=== PATIENT | female | born 1980 | race Two or more races ===

== ENCOUNTER 2024-09-05 03:58 | Emergency (ER) | payer BC, SELFPAY ==
--- NOTE | 2024-09-05 04:03 | XR_ITS ---
Examination: PA lateral chest 2 views Technique: Upright PA lateral chest 2 views Exam date and time: September 05, 2024 0412 hrs. Comparison March 20, 2024 Indications: Onset shortness of breath today Findings: Normal heart size Lungs are clear. The osseous structures are intact Impression: No active disease
--- NOTE | 2024-09-05 04:21 | PD.EDRME ---
Rapid Medical Screening Exam RME Arrival date/time: 09/05/24 03:58 44 year old for c/o of sob and chest pain I have greeted and performed a focused initial assessment of this patient. A comprehensive ED assessment and evaluation of the patient, analysis of all test results, and completion of the medical decision making process will be conducted by additional ED providers. Chief Complaint: Chest Pain Time Seen by Provider: 09/05/24 04:02
[2024-09-05 04:35] VITALS: BP 170/94; PULSE 106; RESP 18; TEMP 37.2; O2SAT 98
[2024-09-05 05:11] LABS: Basophils # (Auto) 0.1 Thou/mm3 (0.0-0.2); Basophils % (Auto) 1 % (0-2.5); Eosinophils % (Auto) 0 % (0-10); Hematocrit 42.2 % (36.0-46.0); Hemoglobin 14.9 g/dL (12.0-16.0); Immature Granulocytes % (Auto) 0 % (0-0); Immature Granulocytes Auto 0.02 Thou/mm3 (0.00-0.00); Lymphocytes # (Auto) 1.8 Thou/mm3 (1.0-4.8); Lymphocytes % (Auto) 18 % (10-50); Mean Corpuscular HGB Conc 35.3 g/dl (31.0-37.0); Mean Corpuscular Hemoglobin 32.1 pg (25.0-35.0); Mean Corpuscular Volume 91 fL (80-100); Monocytes # (Auto) 0.6 Thou/mm3 (0.0-0.8); Monocytes % (Auto) 6 % (0-12); Neutrophils # (Auto) 7.2 Thou/mm3 (1.8-7.7); Neutrophils % (Auto) 75 % (37-80); Nucleated Red Blood Cell % 0 /100 WBC (0); Platelet Count 335 Thou/mm3 (140-440); RDW Standard Deviation 40.6 fL (36.4-46.3); Red Blood Count 4.64 Miln/mm3 (4.00-5.20); White Blood Count 9.6 Thou/mm3 (3.6-11.0)
[2024-09-05 06:14] LABS: Alanine Aminotransferase 36 U/L (10-49); Albumin, Serum 5.1 gm/dL (3.5-5.0); Albumin/Globulin Ratio 1.5 (1.2-2.2); Alkaline Phosphatase 74 U/L (46-116); Anion Gap 8 (7-16); Aspartate Amino Transferase 29 U/L (0-34); BUN/Creatinine Ratio 11 Ratio (12-20); Bilirubin,Total 0.8 mg/dL (0.3-1.2); Blood Urea Nitrogen 10 mg/dL (9-23); Calcium 10.5 mg/dL (8.3-10.6); Calcium (Corrected) 10.5 mg/dL (8.5-10.1); Carbon Dioxide 23.6 mMol/L (20.0-31.0); Chloride 104 mMol/L (98-107); Creatinine (Component) 0.9 mg/dL (0.6-1.3); Globulin 3.3 gm/dL (2.3-3.5); Glucose 132 mg/dL (74-106); Lipase 36 U/L (12-53); Osmolality,Calculated 272 (275-295); Potassium 3.9 mMol/L (3.4-5.1); Sodium 136 mMol/L (136-145); Total Protein 8.4 gm/dL (5.7-8.2); Troponin I < 0.002 ng/mL (0.0-0.045); eGFR > 60 See Note
[2024-09-05 06:20] LABS: HCG,Qualitative Serum Negative
[2024-09-05 06:36] VITALS: BP 163/98; PULSE 92; RESP 17; TEMP 37; O2SAT 100
[2024-09-05 08:13] VITALS: BP 163/107; PULSE 98; RESP 16; TEMP 37.6; O2SAT 97; BMI 36.2
[2024-09-05 08:34] VITALS: BP 154/97
--- NOTE | 2024-09-05 08:35 | EDNOTE_ITS ---
ED Chest Pain RME/HPI General Chief Complaint: Chest Pain Stated Complaint: Chest Discomfort, MALONE, Diarrhea, SOB Time Seen by Provider: 09/05/24 04:02 Arrival date/time: 09/05/24 03:58 RME / HPI RME / HPI narrative: 09/05/24 03:58 44 year old for c/o of sob and chest pain I have greeted and performed a focused initial assessment of this patient. A comprehensive ED assessment and evaluation of the patient, analysis of all test results, and completion of the medical decision making process will be conducted by additional ED providers. DR. ARANA MAIN ED EVALUATION 44 year old female with history of hypertension and asthma presents to the ED for complaint of abdominal pain beginning 3 days ago and worsening yesterday. States she initially described her pain as I felt like I couldn't catch my breath and yesterday was a pressure tightness sensation, most on the left side. Patient added maybe it was a panic attack . No other associated symptoms or complaints reported. Denies any history of similar chest pain. Denies fevers, chills, sweats, cough, shortness of breath, abdominal pain, n/v/d, or urinary symptoms. Related Data Previous Rx's ?Medication ?Instructions ?Recorded iemwnzqngxio-eslifbpborvro-easzpav 5 ml PO Q6H PRN cough #118 mL 03/21/24 6.25 mg-5 mg-10 mg/5 mL oral syrup Allergies Allergy/AdvReac Type Severity Reaction Status Date / Time No Known Allergies Allergy Verified 03/20/24 19:01 Review of Systems Review of Systems Narrative Review of Systems: Gen: No fever, no chills, no weight loss EYES: No discharge, no visual changes, no pain HEENT: No ear pain, no congestion, no sore throat PULM: No shortness of breath, no cough, no congestion CV: +chest pain, no dyspnea on exertion, no palpitations GI: No nausea, no vomiting, no diarrhea, no pain, no constipation : No frequency, no urgency,? no dysuria Musc/skel: No joint pain, no back pain Skin: No rash. Neuro: No weakness, no headache Past Medical History Past Medical History CARDIAC: Positive Hypertension; Negative Congestive Heart Failure RESPIRATORY: Positive Asthma and Bronchitis; Negative Chronic Obstructive Pulmonary Disease (COPD) GENITOURINARY: Negative Renal Disease ENDOCRINE: Negative Diabetes Mellitus Type 1 or Diabetes Mellitus Type 2 Social History SMOKING STATUS: Never smoker ED Exam Narrative Physical exam: GENERAL: In general the patient is awake, interactive, in an emergency department gurney. HEAD/EYES/EARS/NOSE/THROAT: normo-cephalic, atraumatic, mucus membranes are moist, anicteric, palpebral conjunctiva is pink, trachea is midline. CARDIOVASCULAR: regular rate and regular rhythm, no murmurs, heart sounds are not distant, strong pulses in all four extremities that are equal and symmetric bilateral upper and lower extremities, normal capillary refill. CHEST/PULMONARY: normal chest rise and fall, good air movement, clear to auscultation bilaterally, normal inspiratory to expiratory ratios without evidence of respiratory distress. ABDOMEN: soft, not tender, no masses appreciated BACK: normal range of motion without pain. NEUROLOGICAL: cranio-facial features are symmetric, moves all four extremities equally without obvious limitations or weakness. EXTREMITY: no tenderness to palpation over the long bones or large joints of the bilateral upper and lower extremities, no joint swelling, no joint erythema, no signs of trauma, no unilateral leg swelling and no peripheral edema. SKIN: warm, dry, well-perfused, no jaundice, no rash, no telangiectasias or petechia. PSYCH: calm, cooperative, no evidence of psychosis or agitation Course Course Course Narrative: chest xray ordered to help determine etiology of chest pain. Quality Measures none Orders Category Date Time Status Bedside COVID-19 Antigen Test NOW Care 09/05/24 04:03 Completed Bedside Influenza A&B Antigen Test NOW Care 09/05/24 04:03 Completed EKG (ED ONLY) *Do not use* NOW Care 09/05/24 04:03 Completed EKG (ED Only) Stat Exams 09/05/24 04:03 Ordered XR chest 2V Stat Exams 09/05/24 04:03 Completed CBC Stat Lab 09/05/24 04:43 Completed CMP [Comprehensive Metabolic Panel] Stat Lab 09/05/24 04:43 Completed D-Dimer Stat Lab 09/05/24 04:43 Completed HCG,Qualitative Serum Stat Lab 09/05/24 04:43 Completed Lipase Stat Lab 09/05/24 04:43 Completed Troponin I Stat Lab 09/05/24 04:43 Completed Troponin I Stat Lab 09/05/24 09:44 Completed Reevaluation(s) Reevaluation #1: We reviewed all the results, analysis, and plan to repeat troponin and repeat ddimer test. Time: 08:40 Reevaluation #2: Patient remains clinically stable throughout the emergency department visit. We reviewed all the results, analysis, and treatment plans. Patient is amenable to discharge. Strict return precautions were outlined. Patient was discharged in stable condition. Time: 11:38 Vital Signs Vital signs: Vital Signs Temperature 99.0 F 09/05/24 04:35 Pulse Rate 106 H 09/05/24 04:35 Respiratory Rate 18 09/05/24 04:35 Blood Pressure 170/94 H 09/05/24 04:35 Pulse Oximetry (%) 98 09/05/24 04:35 Oxygen Delivery Method Room Air 09/05/24 04:35 Pulse ox is % on room air which is adequate. Chest Pain MDM Narrative MDM Narrative:: Noa Mathews am scribing for and in the presence of Dr. Arana. Patient data External records reviewed:: [facility] previous records (I reviewed ED visit on 03/21/2024) Clinical information provided by:: patient Social determinants that could affect healthcare access:: none Patient has the following chronic illnesses:: HTN, asthma How is presenting disease/condition affected by chronic disease/condition?: exacerbated by Evaluation data The following diagnostics were reviewed and interpreted by me:: lab results, radiology exam(s) and EKG tracing(s) (Sinus tachycardia, rate 112, PVC's, AK interval is 150 which is normal, low voltage throughout, ST T wave change in lead III ) Lab and/or radiology exams considered but not ordered:: None Interpretation Summary: Ordering Physician: Sergey Leong PA-C Date of Service: 09/05/24 Procedure(s): XR chest 2V Accession Number(s): [id number] cc: Geovany Joshua MD; Sergey Leong PA-C; ANDREA FIERRO ~ Examination: PA lateral chest 2 views Technique: Upright PA lateral chest 2 views Exam date and time: September 05, 2024 0412 hrs. Comparison March 20, 2024 Indications: Onset shortness of breath today Findings: Normal heart size Lungs are clear. The osseous structures are intact Impression: No active disease Dictated By: Geovany Joshua MD Signed By: <Electronically signed by Geovany Joshua MD in [place]> 09/05/24 0836 Medications / Prescriptions Medications or Prescriptions considered but not ordered:: None Medication administrations:: None Consultations Consultation(s) initiated? (list below): No Diagnosis Chest Pain Differential Diagnosis: stable angina, atypical chest pain, st elevation myocardial infarction, costochondritis, chest pain and biliary colic Most likely diagnosis given after review of the tests above:: Atypical chest pain Admission Indicated Admission indicated?: not indicated Admission Request Was there a request for admission?: No Disposition Plan Disposition Plan: Discharge Discharge Attestation Discharge Attestation: The patient and all family members were given an opportunity to ask questions and understood the discharge instructions. Discharge instructions specifically effects, indications for sooner follow up or return to the emergency department, and the expected course of current diagnosis. Patient condition: Stable Discharge Plan Plan Patient Disposition: HOME (Self Care) Patient condition on transfer: Stable Prescriptions/Referrals Prescriptions/Med Rec: No Action iyxzkwnxxyye-nowedktaz-wwoktii 6.25-5-10 mg/5 mL syrup 5 ml PO Q6H PRN (Reason: cough) Qty: 118 0RF Referrals: ANDREA FIERRO [Primary Care Provider] - In 1 week Problem List Clinical Impression: Atypical chest pain Patient/Caregiver Discharge Instructions Diet Instructions: Stay hydrated with Pedialyte and/or Gatorade. Education Materials: ED Chest Pain, Uncertain Cause Additional Instructions: Return to the Emergency Department for any worsening symptoms, or any other concerns. Follow-up with your doctor in 1 week. Your D-dimer is negative and your cardiac lab values are normal. At this time I do not believe that you are having a pulmonary embolism or a heart attack. Print Language: [place] Stand Alone Forms: Indira Award Info., Patient Portal Info Letter
[2024-09-05 09:57] LABS: D-Dimer < 250 ng/mL (<600)
[2024-09-05 10:13] LABS: Troponin I < 0.002 ng/mL (0.0-0.045)
[2024-09-05 11:24] VITALS: BP 148/99; PULSE 104; RESP 16; TEMP 37.6; O2SAT 100
== END 2024-09-05 12:00 | disposition home or self-care (01) ==
PROVIDERS: Physician Assistant; Emergency Provider Emergency Medicine; PCP Nurse Practitioner Family
DX: R07.89 Other chest pain (principal); R06.02 Shortness of breath; R00.0 Tachycardia, unspecified; I49.3 Ventricular premature depolarization; I10 Essential (primary) hypertension; J45.909 Unspecified asthma, uncomplicated
CPT/HCPCS: 36415; 71046; 80053; 83690; 84484; 84703; 85025; 85379; 93005; 99283

== ENCOUNTER → 2024-10-20 | Outpatient (CLI) | payer BC, SELFPAY ==
[2024-10-20 11:15] LABS: Basophils # (Auto) 0.1 Thou/mm3 (0.0-0.2); Basophils % (Auto) 1 % (0-2.5); Eosinophils # (Auto) 0.1 Thou/mm3 (0.0-0.5); Eosinophils % (Auto) 1 % (0-10); Hematocrit 42.3 % (36.0-46.0); Immature Granulocytes % (Auto) 1 % (0-0); Immature Granulocytes Auto 0.04 Thou/mm3 (0.00-0.00); Lymphocytes # (Auto) 1.7 Thou/mm3 (1.0-4.8); Lymphocytes % (Auto) 22 % (10-50); Mean Corpuscular HGB Conc 35.5 g/dl (31.0-37.0); Mean Corpuscular Hemoglobin 31.8 pg (25.0-35.0); Mean Corpuscular Volume 90 fL (80-100); Monocytes # (Auto) 0.5 Thou/mm3 (0.0-0.8); Monocytes % (Auto) 6 % (0-12); Neutrophils # (Auto) 5.2 Thou/mm3 (1.8-7.7); Neutrophils % (Auto) 69 % (37-80); Nucleated Red Blood Cell % 0 /100 WBC (0); Platelet Count 361 Thou/mm3 (140-440); RDW Standard Deviation 40.1 fL (36.4-46.3); Red Blood Count 4.72 Miln/mm3 (4.00-5.20); White Blood Count 7.6 Thou/mm3 (3.6-11.0)
[2024-10-20 11:49] LABS: Alanine Aminotransferase 45 U/L (10-49); Albumin, Serum 5.3 gm/dL (3.5-5.0); Albumin/Globulin Ratio 1.9 (1.2-2.2); Alkaline Phosphatase 57 U/L (46-116); Anion Gap 9 (7-16); Aspartate Amino Transferase 26 U/L (0-34); BUN/Creatinine Ratio 11 Ratio (12-20); Bilirubin,Total 1.6 mg/dL (0.3-1.2); Blood Urea Nitrogen 10 mg/dL (9-23); Calcium 10.2 mg/dL (8.3-10.6); Calcium (Corrected) 10.2 mg/dL (8.5-10.1); Carbon Dioxide 27.2 mMol/L (20.0-31.0); Chloride 102 mMol/L (98-107); Creatinine (Component) 0.9 mg/dL (0.6-1.3); Globulin 2.8 gm/dL (2.3-3.5); Glucose 113 mg/dL (74-106); Osmolality,Calculated 275 (275-295); Potassium 3.5 mMol/L (3.4-5.1); Sodium 138 mMol/L (136-145); Thyroid Stimulating Hormone 2.09 uIU/mL (0.55-4.78); Total Protein 8.1 gm/dL (5.7-8.2); eGFR > 60 See Note
[2024-10-31 06:48] LABS: DHEA Sulfate* 162 mcg/dL (19-231); Estrogen, Total, Serum* 489 pg/mL; Luteinizing Hormone* 29.8 mIU/mL; Progesterone,LC/MS* 0.5 ng/mL; Testosterone, Free,Dialysis 3.5 pg/mL (0.1-6.4); Testosterone, Total, Dialysis 35 ng/dL (2-45)
== END | disposition home or self-care (01) ==
LOC: COPL 10:22
PROVIDERS: PCP Nurse Practitioner Family; Referring Provider Nurse Practitioner Family; Visit Provider Nurse Practitioner Family
DX: Z00.00 Encounter for general adult medical examination without abnormal findings (principal); E03.9 Hypothyroidism, unspecified; R53.83 Other fatigue; N95.1 Menopausal and female climacteric states; Z13.89 Encounter for screening for other disorder
CPT/HCPCS: 36415; 80053; 82627; 82672; 83001; 83002; 84144; 84402; 84403; 84443; 85025